=== PATIENT | female | born 1960 | race American Indian/Alaskan Native ===

== ENCOUNTER 2018-02-26 09:07 | Outpatient (CLI) | payer MEDICAID ==
--- NOTE | 2018-02-26 10:16 | Mammography Report ---
Screening mammogram: Routine views demonstrates generalized fatty replacement of the breast pattern bilaterally. There is mild surgical distortion of the upper outer left breast related to surgical site. There is a circumscribed piña shaped nodule in the superior left breast. No associated calcifications. A focal area of chunky calcifications noted medially. Not sure of the location of prior exams. CAD used. Impression: Probably benign left nodule. Recommendation: 6 month followup left breast to confirm stability. BI-RADS CATEGORY: 3 = Probably benign ACR BI-RADS MAMMOGRAPHIC CODES: 0 = Needs additional imaging evaluation; 1 = Negative; 2 = Benign; 3 = Probably benign; 4 = Suspicious; 5 = Malignant; 6 = Known biopsy-proven malignancy COMMENT: 1. Dense breast tissue, i.e., adenosis, fibrocystic changes, etc., may obscure an underlying neoplasm. 2. Approximately 10% of cancers are not detected with mammography. 3. A negative mammography report should not delay biopsy if a clinically suspicious mass is present.
== END 2018-02-26 09:08 | disposition home or self-care (01) ==
LOC: MAMMO 09:07
PROVIDERS: ATTEND Internal Medicine Hematology & Oncology
DX: Z12.31 Encounter for screening mammogram for malignant neoplasm of breast (principal)
CPT/HCPCS: 77067